=== PATIENT | female | born 1980 | race Caucasian/White ===

== ENCOUNTER 2016-09-26 15:34 | Inpatient (IN) | payer MEDICAID ==
[~2016-09-26] VITALS: Ht 167.6 cm; Wt 81.7 kg
[2016-09-26] MEDS ORDERED: SUCCINYLCHOLINE CHLORIDE 20 MG/ML 10ML VIAL IV ONE ×3 (15:39→15:49)
[2016-09-26] MEDS ORDERED: ETOMIDATE (2MG/ML) 20ML VIAL IV ONE ×2 (15:39→15:45)
[2016-09-26] MEDS ORDERED: SODIUM CHLORIDE 0.9% 1,000 ML IV ONE ×3 (15:45→20:45)
[2016-09-26 16:20] LABS: Basophils # (auto) 0 uL; Basophils % (auto) 0.3 % (0.0-2.0); DEFINITIVE VIEW TRANSMISSION; Eosinophils # (auto) 0.1 uL; Eosinophils % (auto) 1.3 % (0.0-7.0); Hematocrit 36.1 % (36.0-46.0); Hemoglobin 11.5 g/dL (12.2-16.2); Lymphocytes # (auto) 1.8 uL; Lymphocytes % (auto) 16.2 % (10.0-50.0); Mean Corpuscular Hemoglobin 26.5 pg (28.0-32.0); Mean Corpuscular Hgb Conc. 31.8 g/dL (32.0-36.0); Mean Corpuscular Volume 83.3 fL (80.0-100.0); Mean Platelet Volume 9.3 fL (7.4-10.4); Monocytes # (auto) 0.8 uL; Monocytes % (auto) 7.4 % (0.0-12.0); Neutrophils # (auto) 8.3 uL; Neutrophils % (auto) 74.8 % (37.0-80.0); Platelet Count (auto) 275 10^3/uL (140-450); Red Cell Distribution Width 16.3 % (11.6-16.0)
[2016-09-26] MEDS: MIDAZOLAM DRIP 100 mg/100mL NS 100 ML IV SCH (16:35)
[2016-09-26 16:39] LABS: Albumin 3.4 g/dL (3.4-5.0); Anion Gap 10 (5-15); Aspartate Aminotransferase 10 U/L (15-37); BUN/Creatinine Ratio 16.9; Blood Urea Nitrogen 11 mg/dL (7-18); Calcium 7.4 mg/dL (8.5-10.1); Carbon Dioxide 22 mmol/L (21-32); Chloride 110 mmol/L (98-107); GFR African American 134 mL/min; GFR Non-African American 111 mL/min; Glucose 123 mg/dL (74-106); Magnesium 1.9 mg/dL (1.6-2.6); Potassium 4.2 mmol/L (3.5-5.1); Salicylate 3.9 mg/dL (2.8-20.0); Sodium 142 mmol/L (136-145)
[2016-09-26 16:42] LABS: Acetaminophen 3.4 ug/mL (10-30); Alkaline Phosphatase 56 U/L (45-117); Bilirubin, Total 0.3 mg/dL (0.2-1.0); Total Protein 6.2 g/dL (6.4-8.2)
[2016-09-26 16:51] VITALS: BP 166/87
[2016-09-26] MEDS ORDERED: PANTOPRAZOLE SODIUM 40 MG/10 ML VIAL IV ONE (17:00)
[2016-09-26 17:34] LABS: Urine Bilirubin Negative (Negative); Urine Blood Negative /uL (Negative); Urine Color Yellow (Yellow); Urine Glucose Normal (Normal); Urine Mucus FEW (None Seen); Urine Nitrite Negative (Negative); Urine RBC <1 /hpf (0 - 4); Urine Squamous Epithelial Cell FEW /hpf (<5)
[2016-09-26 17:35] LABS: Urine Ketone 1+ (Negative)
[2016-09-26 18:00] VITALS: BP 180/106
[2016-09-26] MEDS: PIPERACILLIN-TAZOB 3.375GM 100 ML IV SCH ×2 (18:30→23:42)
[2016-09-26 20:00] VITALS: BP 162/91
[2016-09-26] MEDS ORDERED: LACTULOSE 20Gm/30ML SOLN PO PRN (20:45)
[2016-09-26] MEDS ORDERED: ENOXAPARIN SOD 40 MG/0.4 ML SYRINGE SC ONE (21:00)
[2016-09-26 22:00] VITALS: BP 164/98
[2016-09-27] VITALS (15 sets, daily range): BP systolic 118–154; BP diastolic 62–88
[2016-09-27] MEDS ORDERED: PIPERACILLIN-TAZOB 2.25GM 50 ML IV SCH
[2016-09-27] MEDS ORDERED: DILTIAZEM HCL 25 MG/5 ML VIAL IV ONE
[2016-09-27] MEDS ORDERED: BACL10TA PO (02:11)
[2016-09-27] MEDS ORDERED: NOR5T PO (02:12)
[2016-09-27 03:44] LABS: Basophils # (auto) 0 uL; Basophils % (auto) 0.3 % (0.0-2.0); DEFINITIVE VIEW TRANSMISSION; Eosinophils # (auto) 0 uL; Eosinophils % (auto) 0.2 % (0.0-7.0); Hematocrit 37.9 % (36.0-46.0); Hemoglobin 12.3 g/dL (12.2-16.2); Lymphocytes # (auto) 2.4 uL; Lymphocytes % (auto) 14.9 % (10.0-50.0); Mean Corpuscular Hemoglobin 26.9 pg (28.0-32.0); Mean Corpuscular Hgb Conc. 32.5 g/dL (32.0-36.0); Mean Corpuscular Volume 82.5 fL (80.0-100.0); Mean Platelet Volume 8.9 fL (7.4-10.4); Monocytes # (auto) 1.1 uL; Monocytes % (auto) 6.7 % (0.0-12.0); Neutrophils # (auto) 12.4 uL; Neutrophils % (auto) 77.9 % (37.0-80.0); Platelet Count (auto) 298 10^3/uL (140-450); Red Cell Distribution Width 15.8 % (11.6-16.0); White Blood Cell 15.9 10^3/uL (4.4-10.8)
[2016-09-27 04:02] LABS: Albumin 3.4 g/dL (3.4-5.0); BUN/Creatinine Ratio 14.5; Potassium 3.5 mmol/L (3.5-5.1)
[2016-09-27 04:05] LABS: Bilirubin, Total 0.4 mg/dL (0.2-1.0); Total Protein 6.4 g/dL (6.4-8.2)
[2016-09-27] MEDS: MIDAZOLAM DRIP 100 mg/100mL NS 100 ML IV SCH (04:19)
[2016-09-27] MEDS: PIPERACILLIN-TAZOB 3.375GM 100 ML IV SCH ×3 (05:13→18:00)
[2016-09-27] MEDS ORDERED: LORazepam 2MG/ML-1ML VIAL IV ONE (08:45)
[2016-09-27] MEDS: PANTOPRAZOLE SODIUM 40 MG/10 ML VIAL IV SCH (10:12)
[2016-09-27] MEDS: ENOXAPARIN SOD 40 MG/0.4 ML SYRINGE SC SCH (10:12)
[2016-09-27] MEDS: LORazepam 2MG/ML-1ML VIAL IV PRN ×3 (13:05→18:37)
[2016-09-27] MEDS ORDERED: PROPOFOL 100 ML IV ONE (18:49)
[2016-09-27] MEDS ORDERED: PROPOFOL 100 ML IV SCH (19:00)
[2016-09-28] MEDS: PIPERACILLIN-TAZOB 3.375GM 100 ML IV SCH ×5 (00:19→23:42)
[2016-09-28 02:15] VITALS: BP 139/98
[2016-09-28] MEDS ORDERED: PAR20T PO (02:27)
[2016-09-28] MEDS: LORazepam 2MG/ML-1ML VIAL IV PRN ×8 (03:32→22:12)
[2016-09-28 04:40] VITALS: BP 134/89
[2016-09-28 06:28] LABS: BUN/Creatinine Ratio 9.3; Calcium 8.2 mg/dL (8.5-10.1); Potassium 3.5 mmol/L (3.5-5.1)
[2016-09-28 07:21] LABS: Basophils # (auto) 0 uL; Basophils % (auto) 0.2 % (0.0-2.0); DEFINITIVE VIEW TRANSMISSION; Eosinophils # (auto) 0.1 uL; Eosinophils % (auto) 0.6 % (0.0-7.0); Hematocrit 30.9 % (36.0-46.0); Lymphocytes # (auto) 1.5 uL; Lymphocytes % (auto) 12.3 % (10.0-50.0); Mean Corpuscular Hemoglobin 26.9 pg (28.0-32.0); Mean Corpuscular Hgb Conc. 32.4 g/dL (32.0-36.0); Mean Platelet Volume 9.7 fL (7.4-10.4); Monocytes % (auto) 7.8 % (0.0-12.0); Neutrophils # (auto) 9.7 uL; Neutrophils % (auto) 79.1 % (37.0-80.0); Platelet Count (auto) 231 10^3/uL (140-450); Red Cell Distribution Width 15.5 % (11.6-16.0); White Blood Cell 12.3 10^3/uL (4.4-10.8)
[2016-09-28] MEDS: ENOXAPARIN SOD 40 MG/0.4 ML SYRINGE SC SCH (10:23)
[2016-09-28] MEDS: PANTOPRAZOLE SODIUM 40 MG/10 ML VIAL IV SCH (10:23)
[2016-09-28 12:00] VITALS: BP 132/87
[2016-09-28] MEDS ORDERED: HYDR-4072 PO (12:23)
[2016-09-28 16:00] VITALS: BP 123/76
[2016-09-29] MEDS: LORazepam 2MG/ML-1ML VIAL IV PRN ×3 (00:30→15:38)
[2016-09-29 05:48] LABS: Basophils # (auto) 0 uL; Basophils % (auto) 0.4 % (0.0-2.0); DEFINITIVE VIEW TRANSMISSION; Eosinophils # (auto) 0.1 uL; Eosinophils % (auto) 0.9 % (0.0-7.0); Hemoglobin 11.3 g/dL (12.2-16.2); Lymphocytes # (auto) 2.4 uL; Lymphocytes % (auto) 21.7 % (10.0-50.0); Mean Corpuscular Hemoglobin 26.6 pg (28.0-32.0); Mean Corpuscular Hgb Conc. 32.2 g/dL (32.0-36.0); Mean Corpuscular Volume 82.7 fL (80.0-100.0); Mean Platelet Volume 9.6 fL (7.4-10.4); Monocytes # (auto) 1.2 uL; Monocytes % (auto) 10.7 % (0.0-12.0); Neutrophils # (auto) 7.4 uL; Neutrophils % (auto) 66.3 % (37.0-80.0); Platelet Count (auto) 254 10^3/uL (140-450); Red Cell Distribution Width 15.7 % (11.6-16.0); White Blood Cell 11.2 10^3/uL (4.4-10.8)
[2016-09-29] MEDS: PIPERACILLIN-TAZOB 3.375GM 100 ML IV SCH ×2 (05:59→12:14)
[2016-09-29 06:18] LABS: BUN/Creatinine Ratio 5.6; Calcium 8.6 mg/dL (8.5-10.1)
[2016-09-29 06:33] LABS: Potassium 2.8 mmol/L (3.5-5.1)
[2016-09-29] MEDS ORDERED: POTASSIUM CHLORIDE 40 MEQ, LIDOCAINE 1% (LOCAL ANESTH.) 4 ML in SODIUM CHL 0.9% 250 ML IV ONE (07:30)
[2016-09-29] MEDS ORDERED: HYDROcodone-ACET 5/325MG TAB PO PRN (12:00)
[2016-09-29] MEDS: ENOXAPARIN SOD 40 MG/0.4 ML SYRINGE SC SCH (12:14)
[2016-09-29] MEDS: PANTOPRAZOLE SODIUM 40 MG/10 ML VIAL IV SCH (12:14)
[2016-09-29] MEDS ORDERED: PARoxetine 20 MG TAB PO ONE (16:15)
[2016-09-29] MEDS ORDERED: LORazepam 0.5 MG TAB PO PRN (16:30)
[2016-09-29] MEDS ORDERED: HALOPERIDOL LACTATE 5 MG/ML INJ VIAL IV PRN (16:30)
[2016-09-29] MEDS ORDERED: HALOPERIDOL LACTATE 5 MG/ML INJ VIAL ONE (20:26)
[2016-09-29] MEDS ORDERED: HALOPERIDOL LACTATE 5 MG/ML INJ VIAL IM ONE (20:30)
[2016-09-30] MEDS ORDERED: PARoxetine 20 MG TAB PO SCH (10:00)
== END 2016-09-29 21:08 | disposition home or self-care (01) | DRG 812 ==
LOC: EDBD 15:34 → ER 15:36 → TELE 15:37 → TELE-CENTR 09-28 11:23
PROVIDERS: ADMIT Family Medicine; ATTEND Internal Medicine
PROC: 5A1945Z Respiratory Ventilation, 24-96 Consecutive Hours (ICD-10-PCS; principal; 2016-09-26)
PROC: 0BH17EZ Insertion of Endotracheal Airway into Trachea, Via Natural or Artificial Opening (ICD-10-PCS; 2016-09-26)
DX: T42.8X1A Poisoning by antiparkinsonism drugs and other central muscle-tone depressants, accidental (unintentional), initial encounter (principal); J96.00 Acute respiratory failure, unspecified whether with hypoxia or hypercapnia; G92 Toxic encephalopathy; G93.1 Anoxic brain damage, not elsewhere classified; F33.9 Major depressive disorder, recurrent, unspecified; E87.2 Acidosis; F17.210 Nicotine dependence, cigarettes, uncomplicated; Z98.84 Bariatric surgery status; F41.9 Anxiety disorder, unspecified; G89.29 Other chronic pain; E66.9 Obesity, unspecified; M54.12 Radiculopathy, cervical region; M54.5 Low back pain; Y92.89 Other specified places as the place of occurrence of the external cause; Z90.49 Acquired absence of other specified parts of digestive tract; Z98.890 Other specified postprocedural states; F12.90 Cannabis use, unspecified, uncomplicated; Z68.29 Body mass index [BMI] 29.0-29.9, adult
CPT/HCPCS: 31500; 36415; 36600; 51702; 70450; 71010; 80048; 80053; 80320; 80329; 81001; 81025; 82805; 82962; 83735; 85025; 87070; 87205; 87493; 93005; 94002; 94003; 95819; 96361; 96372; 96374; 96375; 99291; A4565; C9113; G0434; J0330; J2001; J2543; J2704